=== PATIENT | female | born 1980 | race Caucasian/White ===

== ENCOUNTER 2019-07-03 13:08 | Emergency (ER) | payer SELFPAY ==
[~2019-07-03] VITALS: Ht 170.2 cm; Wt 100.0 kg
[2019-07-03 13:19] VITALS: Ht 170.2 cm; Wt 100.0 kg
[2019-07-03] MEDS ORDERED: CYCLOBENZAPRINE10 MG PO (13:41)
[2019-07-03 14:25] LABS: BASOPHILS 0.4 % (0-2); EOSINOPHILS 2.1 % (0-7); HEMOGLOBIN 13.8 g/dL (12-16); IMMATURE GRANULOCYTES 0.3 % (0-5); LYMPHOCYTES 27.9 % (15-50); MCH 31.7 pg (26.0-34.0); MCHC 34.5 g/dL (31.0-37.0); MEAN PLATELET VOLUME 9.7 fL (7.4-10.4); MONOCYTES 8.6 % (2-11); NEUTROPHILS 60.7 % (40-80); PLATELET COUNT 225 10x3/uL (130-400); RBC 4.35 10x6/uL (4.00-5.40); RDW 13.5 % (11.5-14.5); WBC 9.9 10x3/uL (4.8-10.8)
[2019-07-03 14:40] LABS: ALBUMIN 3.2 g/dL (3.4-5.0); ALKALINE PHOSPHATASE 85 U/L (46-116); ALT (SGPT) 34 U/L (10-68); BILIRUBIN - TOTAL 0.45 mg/dL (0.2-1.3); CALC OSMOLALITY 277 mosm/kg (275-300); CALCIUM 8.7 mg/dL (8.5-10.1); CARBON DIOXIDE 27.6 mmol/L (21.0-32.0); CHLORIDE - SERUM 104 mmol/L (98-107); CREATININE - SERUM 0.7 mg/dL (0.6-1.3); GLUCOSE 85 mg/dL (74-106); POTASSIUM - SERUM 3.9 mmol/L (3.5-5.1); PROTEIN - SERUM 7.3 g/dL (6.4-8.2); SODIUM 139 mmol/L (136-145); UREA NITROGEN 15 mg/dL (7-18); eGFR NON AFRICAN AMERICAN > 90 mL/min (90-120)
[2019-07-03 15:26] VITALS: BP 175/81
== END 2019-07-03 15:28 | disposition home or self-care (01) ==
LOC: D.ER 13:08
PROVIDERS: Family Medicine
DX: T14.8XXA Other injury of unspecified body region, initial encounter (principal); V23.5XXA Motorcycle passenger injured in collision with car, pick-up truck or van in traffic accident, initial encounter; Y93.89 Activity, other specified; Y92.410 Unspecified street and highway as the place of occurrence of the external cause